=== PATIENT | male | born 1935 | race Caucasian/White ===

== ENCOUNTER 2018-06-10 13:31 | Emergency (ER) | payer MEDICAID, MEDICARE, OTHER ==
[2018-06-10 13:38] VITALS: RESP 20; TEMP 98.8
[2018-06-10 13:53] LABS: BASOPHILS % (AUTO) 1 % (0-3); EOSINOPHILS % (AUTO) 3 % (0-9); HEMATOCRIT 41 % (39-53); HEMOGLOBIN 13.3 gm/dl (13.5-17.7); LYMPHOCYTES % (AUTO) 14.81 % (10-50); MEAN CORPUSCULAR HEMOGLOBIN 30.1 pg (27.0-32.0); MEAN CORPUSCULAR HGB CONC 32.9 gm/dl (32.0-36.0); MEAN CORPUSCULAR VOLUME 91 fL (80-100); MONOCYTES % (AUTO) 7.2 % (0-12); NEUTROPHILS % (AUTO) 74.7 % (37-80)
[2018-06-10 14:09] LABS: BLOOD UREA NITROGEN 16 mg/dl (7-18); CALCIUM 8.7 mg/dl (8.5-10.1); CARBON DIOXIDE 37.8 mEq/L (21-32); CHLORIDE 100 mMol/L (98-107); CREATININE 1.18 mg/dl (0.80-1.30); GLOM FILT RATE 59 mL/min (>60); GLUCOSE 155 mg/dl (74-106); POTASSIUM 4.3 mMol/L (3.5-5.1); SODIUM 138 mMol/L (136-145); TROP I < 0.017 ng/ml (0.000-0.056)
[2018-06-10] MEDS ORDERED: ALBUTEROL/IPRATROPIUM 1 VIAL SOL INH ONE (15:27)
[2018-06-10] MEDS ORDERED: ALBUTEROL/IPRATROPIUM 1 VIAL SOL ONE (15:28)
[2018-06-10 15:40] VITALS: PULSE 84; O2SAT 99
[2018-06-10 16:16] VITALS: BP 138/67
== END 2018-06-10 15:50 | DRG 206 ==
LOC: ED 13:31
DX: T17.928A Food in respiratory tract, part unspecified causing other injury, initial encounter (principal); I10 Essential (primary) hypertension
CPT/HCPCS: 36415; 71045; 80048; 84484; 85025; 93005; 99283